=== PATIENT | male | born 1975 | race Caucasian/White ===

== ENCOUNTER 2019-10-18 23:11 | Emergency (ER) | payer OTHER ==
[~2019-10-18] VITALS: Ht 175.3 cm; Wt 95.3 kg
[2019-10-19] MEDS ORDERED: ASPIRIN 81 MG CHEW TAB PO ONE
[2019-10-19] MEDS ORDERED: ASPIRIN 81 MG CHEW TAB ONE (00:09)
[2019-10-19] MEDS ORDERED: CLONIDINE HCL 0.1 MG TAB ONE ×2 (00:09→00:59)
--- OUTSIDE RECORDS SUMMARY | 2019-10-19 00:21 | XMS REPORT ---
Author Author Jourdan Plummer Organization [employer] Address Unknown Phone Unavailable Care Team Providers Care Putter In Name Role Phone Uriel Plummer CP Unavailable Allergies, Adverse Reactions, Alerts Substance Reaction Event Type N.K.D.A. 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 Problem Sinusitis - Chronic J32.8 Active Problem Hypertrophy of tonsils J35.1 Activ e Problem Chronic rhinitis J31.0 Active Problem Allergic rhinitis J30.9 Active Problem Dysphagia R13.19 Active Assessment Postnasal drip R09.82 Active Assessment Sinusitis - Chronic J32.8 Active Assessment Chronic rhinitis J31.0 Active Assessment Allergic rhinitis J30.9 Active Medications Medication Code System Code Instructions Start Date End Date Status Dosage Lisinopril [facility] [address]-78 Active not def ined Nexium [facility] 00762492557 40 MG Orally Once a day Acti ve 1 capsule Pravastatin Sodium [facility] [address]-57 Active not defined Results No Known Results Summary Purpose [employer] Submission
--- OUTSIDE RECORDS SUMMARY | 2019-10-19 00:21 | XMS REPORT | Continuity of Care Document ---
Author Author [facility] t Organization [facility] Address [address] [place] [address] Phone Unavailable Care Team Providers Care Plywood Layup Line Core Layer Name Role Phone Mukund Bethea PCP Unavailable Doctor Unassigned, Name No Attphys Unavailable Vandana Bethea MD Attphys Problems Condition Name Condition Details Condition Category Status Onset Date Resolution Date Last Treatment Date Treating Clinician Comments Source Nasal airway obstruction Nasal airway obstruction Diagnosis [facility] Chronic tonsillitis Chronic tonsillitis Problem [facility] Hypertrophy of tonsil with adenoids Hypertrophy of tonsil with a denoids Problem [facility] Polyp of nasal cavity Polyp of nasal cavity Problem [facility] Polypoid sinus degeneration Polypoid sinus degeneration Problem [facility] Sinusitis - Chronic Sinusitis - Chronic Diagnosis [facility] Hypertrophy of tonsils Hypertrophy of tonsils Problem [facility] Chronic rhinitis Chronic rhinitis Diagnosis [facility] Allergic rhinitis Allergic rhinitis Diagnosis [facility] Dysphagia Dysphagia Problem [facility] Postnasal drip Postnasal drip Diagnosis [facility] Allergies, Adverse Reactions, Alerts This patient has no known allergies or adverse reactions. Social History Social Habit Start Date Stop Date Quantity Comments Source Sex Assigned At [facility] Smoking Status Start Date Stop Date Source Never smoker [facility] Medications Ordered Medication Name Filled Medication Name Start Date Stop Da te Current Medication? Ordering Clinician Indication Dosage Frequency Signature (SIG) Comments Components Source esomeprazole (NEXIUM) 20 MG capsule 2016-03-16 14:43:51 Yes 20mg QD Take 20 mg by mouth daily. [facility] Lisinopril Lisinopril Yes Uriel Plummer not define d [facility] Nexium Nexium Yes Uriel Elian 1 capsule [facility] Pravastatin Sodium Pravastatin Sodium Yes Uriel Elian not defined [facility] Procedures This patient has no known procedures. Encounters Start Date/Time End Date/Time Encounter Type Admission Type [facility] Care Department Encounter ID Source 2019-09-18 00:00:00 2019-09-18 00:00:00 Orders Only D o[place] Unassigned, [place] [facility] [id number] 2019-09-17 00:00:00 2019-09-17 00:00:00 Telephone Edna Bethea [facility] [id number] 2019-09-07 00:00:00 2019-09-07 00:00:00 Patient Secure Msg Edna Bethea [facility] [id number] 2017-05-06 11:10:00 2017-05-06 11:10:00 Outpatient [facility] P [id number] [facility] Results This patient has no known results.
--- OUTSIDE RECORDS SUMMARY | 2019-10-19 00:21 | XMS REPORT | Clinical Summary ---
Author Author [facility] Address Unknown Phone Unavailable Care Team Providers Care Digital Campaign Manager Name Role Phone Edna Bethea PCP Unavailable Allergies No Known Allergies Medications End Date Status Medication Sig Dispensed Refills Start Date Active esomeprazole (NEXIUM) 20 Take 20 mg by 0 MG capsule mouth daily. Active Problems Not on file Social History Date Tobacco Use Types Packs/Day Years Used Never Smoker Alcohol Use Drinks/Week oz/Week Comments Yes 3 Standard 1.5 drinks or equivalent Sex Assigned at Date Recorded Not on file Industry Job Start Date Occupation Not on file Not on file Not on file Travel End Travel History Travel Start No recent travel history available. Last Filed Vital Signs Not on file Plan of Treatment Not on file Results Not on fileafter 10/18/2018 Insurance Payer Benefit Subscriber ID Type Phone Address Plan / Group C[employer] - [facility] xxxxxxxxx CIGNA O [id number]
--- OUTSIDE RECORDS SUMMARY | 2019-10-19 00:21 | XMS REPORT | Summary of Care ---
Author Author [facility] Organization [facility] Address Unknown Phone Unavailable Care Team Providers Care Black Oxide Coating Equipment Tender Name Role Phone Edna Bethea MD PCP Encounter Details Care Team Description Date Type Department Doctor Unassigned, [place] [address] [place] [address] 10/16/2018 Orders Only [address] [address] Allergies No Known Allergiesdocumented as of this encounter (statuses as of 10/16/2018) Medications End Date Status Medication Sig Dispensed Refills Start Date Active testosterone 1.25 APPLY 4 1 Bottle 2 09/14/19 1 g/Actuation (1 %) gel SPRAYS 7 pumpIndications: EXTERNALLY TO Hypogonadism, male SPECIFIC AREA OF SKIN DAILY Active tadalafil (CIALIS) 5 mg TAKE 1/2 6 tablet 2 tabletIndications: TABLET BY 8 Erectile dysfunction due MOUTH EVERY to diseases classified 36 HOURS elsewhere Active pravastatin 40 mg Take 1 tablet 90 tablet 3 tabletIndications: Other by mouth at 8 hyperlipidemia bedtime. Active omeprazole 20 mg capsule Take 1 30 capsule 2 0 capsule by 8 mouth daily. Active lisinopril 10 mg Take 1 tablet 30 tablet 0 tabletIndications: by mouth 9 Essential hypertension daily. documented as of this encounter (statuses as of 10/16/2018) Active Problems Problem Noted Date Vitamin D deficiency 11/27/2017 Esophageal dysphagia 11/27/2017 Essential hypertension 09/14/2016 Other hyperlipidemia 12/20/2015 Erectile dysfunction 06/18/2014 Hypogonadism, male 06/06/2009 documented as of this encounter (statuses as of 10/16/2018) Resolved Problems Problem Noted Date Resolved Date Tonsillar enlargement 12/20/2015 09/14/2016 HLD (hyperlipidemia) 03/20/2013 12/20/2015 Overview: ICD10 Diagnosis Term Hematology Nurse Utility documented as of this encounter (statuses as of 10/16/2018) Immunizations Name Administration Dates Next Due Tdap 09/04/2012 documented as of this encounter Social History Date Tobacco Use Types Packs/Day Years Used Never Smoker Drinks/Week oz/Week Comments Alcohol Use 1-4 whiskey shots pe r week. Yes Sex Assigned at Date Recorded Not on file Industry Job Start Date Occupation Not on file Not on file Not on file Travel End Travel History Travel Start No recent travel history available. documented as of this encounter Last Filed Vital Signs Not on filedocumented in this encounter Plan of Treatment Care Team Description Date Type Specialty Edna Bethea MD [address] [facility] [id number] [place] [address] [phone] 10/16/2018 Office Visit Family Medicine Health Maintenance Due Date Last Done Comments INFLUENZA VACCINE 11/16/2018 DTaP,Tdap,and Td Vaccines 09/04/2022 09/04/2012 (2 - Td) PNEUMOCOCCAL 0-64 YEARS Aged Out No longer elig ible based COMBINED SERIES on patient's age to complete this topic documented as of this encounter Procedures Comments Procedure Name Priority Date/Time Associated Diag nosis NO SHOW OR MISSED Routine 10/16/2018 APPOINTMENT POLICY 8:05 AM CDT ACKNOWLEDGEMENT documented in this encounter Results Not on filedocumented in this encounter Insurance Type Payer Benefit Subscriber ID Effective Phone Address Plan / Dates Group HMO/PPO/POS CIGNA CIGNA II [id number] 2014-P resent documented as of this encounter Advance Directives Patient Vb Developer Explanation Type Date Recorded Advance Directives 05/20/2015 9:05 AM and Living Will Power of Granulator Tender 05/20/2015 9:05 AM
--- OUTSIDE RECORDS SUMMARY | 2019-10-19 00:22 | XMS REPORT | Summary of Care ---
Author Author [facility] - Health Organization [facility] - [facility] Address Unknown Phone Unavailable Care Team Providers Care Door Puller Name Role Phone Edna Bethea MD PCP Reason for Visit * Reason Comments Authorization Encounter Details Care Team Description Date Type Department Edna Bethea MD [address] [facility] [id number] [place], [place] [address] Authorization 10/17/2018 Telephone [place] [id number] [facility] [address] [place] [address] Allergies No Known Allergiesdocumented as of this encounter (statuses as of 10/29/2018) Medications End Date Status Medication Sig Dispensed Refills Start Date Active tadalafil (CIALIS) 5 mg TAKE 1/2 6 tablet 2 tabletIndications: TABLET BY 8 Erectile dysfunction due MOUTH EVERY to diseases classified 36 HOURS elsewhere Active testosterone 1.25 APPLY 4 1 Bottle 2 10/17/19 1 g/Actuation (1 %) gel SPRAYS 9 pumpIndications: EXTERNALLY TO Hypogonadism, male SPECIFIC AREA OF SKIN DAILY Active lisinopril 10 mg Take 1 tablet 90 tablet 3 01 tabletIndications: by mouth 9 Essential hypertension daily. Active pravastatin 40 mg Take 1 tablet 90 tablet 3 tabletIndications: Other by mouth at 9 hyperlipidemia bedtime. Active omeprazole 20 mg Take 1 30 capsule 2 capsuleIndications: capsule by 9 Esophageal dysphagia mouth daily. documented as of this encounter (statuses as of 10/29/2018) Active Problems Problem Noted Date Elevated LFTs 10/19/2018 Vitamin D deficiency 11/27/2017 Esophageal dysphagia 11/27/2017 Essential hypertension 09/14/2016 Other hyperlipidemia 12/20/2015 Erectile dysfunction 06/18/2014 Hypogonadism, male 06/06/2009 documented as of this encounter (statuses as of 10/29/2018) Resolved Problems Problem Noted Date Resolved Date Tonsillar enlargement 12/20/2015 09/14/2016 HLD (hyperlipidemia) 03/20/2013 12/20/2015 Overview: ICD10 Diagnosis Term Executive Assistant Utility documented as of this encounter (statuses as of 10/29/2018) Immunizations Name Administration Dates Next Due Tdap 09/04/2012 documented as of this encounter Social History Date Tobacco Use Types Packs/Day Years Used Never Smoker Smokeless Tobacco: Never Used Drinks/Week oz/Week Comments Alcohol Use 1-4 whiskey [...] Date Type Specialty Edna Bethea MD [address] [facility] [id number] [place] [address] [phone] 12/18/2018 Office Visit Family Medicine Health Maintenance Due Date Last Done Comments INFLUENZA VACCINE 11/16/2018 DTaP,Tdap,and Td Vaccines 09/04/2022 09/04/2012 (2 - Td) PNEUMOCOCCAL 0-64 YEARS Aged Out No longer elig ible based COMBINED SERIES on patient's age to complete this topic documented as of this encounter Results Not on filedocumented in this encounter Insurance Type Payer Benefit Subscriber ID Effective Phone Address Plan / Dates Group HMO/PPO/POS CIGNA CIGNA II [id number] 2014-P resent documented as of this encounter Advance Directives Patient Stack Supervisor Explanation Type Date Recorded Advance Directives 05/20/2015 9:05 AM and Living Will Power of Sonographer 05/20/2015 9:05 AM
--- OUTSIDE RECORDS SUMMARY | 2019-10-19 00:22 | XMS REPORT | Summary of Care ---
Author Author [facility] - Health Organization [facility] - Health Address Unknown Phone Unavailable Care Team Providers Care Mid Wife Name Role Phone Edna Bethea MD PCP Encounter Details Care Team Description Date Type Department Edna Bethea MD [id number] [place] [address] 09/07/2019 Patient Secure [address] [place] [address] Allergies No Known Allergiesdocumented as of this encounter (statuses as of 10/10/2019) Medications End Date Status Medication Sig Dispensed [...] as of this encounter (statuses as of 10/10/2019) Active Problems Problem Noted Date Elevated LFTs 10/19/2018 Vitamin D deficiency 11/27/2017 Esophageal dysphagia 11/27/2017 Essential hypertension 09/14/2016 Other hyperlipidemia 12/20/2015 Erectile dysfunction 06/18/2014 Hypogonadism, male 06/06/2009 documented as of this encounter (statuses as of 10/10/2019) Resolved Problems Problem Noted Date Resolved Date Tonsillar enlargement 12/20/2015 09/14/2016 HLD (hyperlipidemia) 03/20/2013 12/20/2015 Overview: ICD10 Diagnosis Term Liquor Tester Utility documented as of this encounter (statuses as of 10/10/2019) Immunizations Name Administration Dates Next Due TDAP 09/04/2012 documented as of this encounter Social [...] filedocumented in this encounter Plan of Treatment Health Maintenance Due Date Last Done Comments Depression Screening 1989 INFLUENZA VACCINE (#1) 2019 DTaP,Tdap,and Td Vaccines 09/04/2022 09/04/2012 (2 - Td) PNEUMOCOCCAL 0-64 YEARS Aged Out No longer elig ible based COMBINED SERIES on patient's age to complete this topic documented as of this encounter Results Not on filedocumented in this encounter Insurance Type Payer Benefit Subscriber ID Effective Phone Address Plan / Dates Group HMO/PPO/POS CIGNA CIGNA II [id number] 2014-P resent documented as of this encounter Advance Directives Patient Traffic Engineering Director Explanation Type Date Recorded Advance Directives 05/20/2015 9:05 AM and Living Will Power of Freelance Data Entry 05/20/2015 9:05 AM
--- OUTSIDE RECORDS SUMMARY | 2019-10-19 00:22 | XMS REPORT | Summary of Care ---
Author Author [facility] - Health Organization [facility] - Health Address Unknown Phone Unavailable Care Team Providers Care Senior Game Designer Name Role Phone Edna Bethea MD PCP Reason for Visit * Reason Comments Results Encounter Details Care Team Description Date Type Department Edna Bethea MD [address] [facility] [id number] [place] [address] Results 10/31/2018 Case Management [place] [id number] [facility] [address] [place] [address] Allergies No Known Allergiesdocumented as of this encounter (statuses as of 10/31/2018) Medications End Date Status Medication Sig Dispensed Refills Start Date Active tadalafil (CIALIS) 5 mg TAKE 1/ 6 tablet 2 tabletIndications: TABLET BY 8 [...] as of this encounter (statuses as of 10/31/2018) Active Problems Problem Noted Date Elevated LFTs 10/19/2018 Vitamin D deficiency 11/27/2017 Esophageal dysphagia 11/27/2017 Essential hypertension 09/14/2016 Other hyperlipidemia 12/20/2015 Erectile dysfunction 06/18/2014 Hypogonadism, male 06/06/2009 documented as of this encounter (statuses as of 10/31/2018) Resolved Problems Problem Noted Date Resolved Date Tonsillar enlargement 12/20/2015 09/14/2016 HLD (hyperlipidemia) 03/20/2013 12/20/2015 Overview: ICD10 Diagnosis Term Numerical Control Machine Tool Operator Utility documented as of this encounter (statuses as of 10/31/2018) Immunizations Name Administration Dates Next Due Tdap [...] Signs Not on filedocumented in this encounter Progress Notes * Edna Bethea MD - 10/31/2018 4:50 PM CDT Insurance has denied paying for testosterone therapy as no results of recent low testosterone levels. Testosterone levels ordered. To be done weekly drawn between 8-10am. My chart message sent to patient. documented in this encounter Plan of Treatment Care Team Description Date Type Specialty Edna Bethea MD [id number] [place] [address] [phone] 12/18/2018 Office Visit Family Medicine Order Schedule Name Type Priority Associated Diag noses weekly for 2 Occurrences starting 2018 until 10/30/2019 TESTOSTERONE, FREE AND LAB Routine Hypogon adism, male TOTAL Health Maintenance Due Date Last Done Comments INFLUENZA VACCINE (#1) 2018 DTaP,Tdap,and Td Vaccines 09/04/2022 09/04/2012 (2 - Td) PNEUMOCOCCAL 0-64 YEARS Aged Out No longer elig ible based COMBINED SERIES on patient's age to complete this topic documented as of this encounter Results Not on filedocumented in this encounter Visit Diagnoses Diagnosis Hypogonadism, male - Primary Other testicular hypofunction documented in this encounter Insurance Type Payer Benefit Subscriber ID Effective Phone Address Plan / Dates Group HMO/PPO/POS [employer]AGE [place] II [id number] 2014-P resent documented as of this encounter Advance Directives Patient Rolling Mill Operator Explanation Type Date Recorded Advance Directives 05/20/2015 9:05 AM and Living Will Power of Line Painting Machine Operator 05/20/2015 9:05 AM
--- OUTSIDE RECORDS SUMMARY | 2019-10-19 00:22 | XMS REPORT | Summary of Care ---
Author Author [facility] - Health Organization [facility] - Health Address Unknown Phone Unavailable Care Team Providers Care People Manager Name Role Phone Edna Bethea MD PCP Reason for Visit * Reason Comments Follow-up Hypertension Refill Request Encounter Details Care Team Description Date Type Department Edna Bethea MD 301 [facility] [id number] [place], [place] [address] Hypogonadism, male (Primary Dx); Vitamin D deficiency; Essential hypertension; Other hyperlipidemia; Esophageal dysphagia; Adjustment disorder with anxious mood 10/16/2018 Office Visit [address] [place] [phone] Allergies No Known Allergiesdocumented as of [...] Take 1 tablet 90 tablet 3 tabletIndications: by mouth 9 Essential hypertension daily. Active pravastatin 40 mg Take 1 tablet 90 tablet 3 tabletIndications: Other by mouth at 9 hyperlipidemia bedtime. Active omeprazole 20 mg Take 1 30 capsule 2 capsuleIndications: capsule by 9 Esophageal dysphagia mouth daily. 10/16/2018 Discontinued testosterone 1.25 APPLY 4 1 Bottle 2 09/14/19 1 g/Actuation (1 %) gel SPRAYS 7 pumpIndications: EXTERNALLY TO Hypogonadism, male SPECIFIC AREA OF SKIN DAILY 10/16/2018 Discontinued pravastatin 40 mg Take 1 tablet 90 tablet 3 tabletIndications: Other by mouth at 8 hyperlipidemia bedtime. 10/16/2018 Discontinued omeprazole 20 mg capsule Take 1 30 capsule 2 0 capsule by 8 mouth daily. 10/16/2018 Discontinued lisinopril 10 mg Take 1 tablet 30 [...] (hyperlipidemia) 03/20/2013 12/20/2015 Overview: ICD10 Diagnosis Term Diabetes Education Coordinator Utility documented as of this encounter (statuses [...] of this encounter Last Filed Vital Signs Reading Time Taken Comments Vital Sign 126/80 10/16/2018 8:18 AM CDT Blood Pressure 82 10/16/2018 8:12 AM CDT Pulse 36.9 C (98.4 F) 10/16/2018 8:12 AM CDT Temperature 20 10/16/2018 8:12 AM CDT Respiratory Rate 98% 10/16/2018 8:12 AM CDT Oxygen Saturation - - Inhaled Oxygen Concentration 98.7 kg (217 lb 11.2 oz) 10/16/2018 8:12 AM CDT Weight 175.3 cm (5' 9") 10/16/2018 8:12 AM CDT Height 32.15 10/16/2018 8:12 AM CDT Body Mass Index documented in this encounter Progress Notes * Edna Bethea MD - 10/16/2018 8:20 AM CDT Jourdan Elias is a 43 year old male here for chief complaint of Follow-up; Hypert ension; and Refill Request HPI: Jourdan Elias is a 43 year old male here for Follow-up; Hypertension; and Re fill Request Not sleeping well stress at work, 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 Wit h no more employees. Problems fallign asleep. For stress reduction - friends- p ool bbq basketball. [place]. Projects around house. No scheduled exercise. - run s walk 20 mins once a week. Uneasy in chest if leaves work with unfinshed dutie s. Enjoys work and pay from it. last year- Dog cancer 2 d before aunt. M Aunt cancer- in spine M First cousin- leukemia Medications reviewed- forgets pravastatin Insurance doesn't cover patches, doesn't like putting on cream. - takes long german e to dry. not checking bp at home. Rarely has dysphagia takes omeprazole when does occurs 1-2 x a month. Has not taken testoserone in 1 year. Taklng vitamin D 2,000IU a day. HISTORY Patient Active Problem List Diagnosis Hypogonadism, male Erectile dysfunction Other hyperlipidemia Essential hypertension Vitamin D deficiency Esophageal dysphagia Updated: family history and social history REVIEW OF SYSTEMS Constitutional: denies fatigue, denies fever , denies weight gain and denies david ght loss. Cardiovascular: denies chest pain and denies palpitations. Respiratory: denies cough and denies shortness of breath. Gastrointestinal: denies abdominal pain, denies constipation, denies diarrhea, d enies nausea and denies vomiting. Musculoskeletal: denies joint pain, denies muscle cramps and denies weakness. Lymph: denies swelling. PHYSICAL EXAM BP 126/80 | Pulse 82 | Temp 36.9 C (98.4 F) (Oral) | Resp 20 | Ht 5' 9" (1.753 m) | Wt 217 lb 11.2 oz (98.7 kg) | SpO2 98% | BMI 32.15 kg/m Body mass index is 32.15 kg/m. Pain Score: 0-No pain General: Patient in no acute distress. Vitals noted. Lungs: clear to auscultation bilaterally, no crackle or wheeze, good air moveme nt. CV: normal S1 S2, no murmurs. Extremities: no edema ASSESSMENT Hypogonadism, male (primary encounter diagnosis) Comment: untreated in about 1 year. Plan: TESTOSTERONE, testosterone 1.25 g/Actuation (1 %) gel pump Discussed different techniques for using time while gel drying, he will tr y to change his morning routine. Recheck level in 2 months Vitamin D deficiency Plan: VITAMIN D, 25-OH adjsut pending results Essential hypertension Comment: controlled Plan: CBC WITH DIFF, COMP. METABOLIC PANEL (20151), LIPID PANEL (72988)(TOTAL CHOLESTEROL, TRIGLYCERIDES, HDL), lisinopril 10 mg tablet, CBC WITH DIFFERENTIAL Other hyperlipidemia Comment: discussed ways to remember tyo take pravistatin Plan: COMP. METABOLIC PANEL (82710), LIPID PANEL (61727)(TOTAL CHOLESTEROL, TRIGLYCERIDES, HDL), pravastatin 40 mg tablet Had total body usg done at [facility] and told fatty liver and gallstones, - a symptomatic Low fat diet advised. Esophageal dysphagia Plan: omeprazole 20 mg capsule Uses intermittently Adjustment disorder with anxious mood May be due to work stress from success of business. Still hable to enjoy activit ies outside of work May improve with testosterone treatment. Return to clinic in 2 months . Patient voices understanding and agreement with kandy maravilla. documented in this encounter Plan of Treatment Care Team Description Date Type Specialty Edna Bethea MD [id number] [place] [address] [phone] 12/18/2018 Office Visit Family Medicine Order Schedule Name Type Priority Associated Diag noses Ordered: 10/16/2018 CBC WITH DIFF LAB Routine Essential hyper tension Ordered: 10/16/2018 COMP. METABOLIC PANEL LAB Routine Essentia l hypertension (68640) Other hyperlipidemia Ordered: 10/16/2018 LIPID PANEL (15142)(TOTAL LAB Routine Esse ntial hypertension CHOLESTEROL, Other hyperlipidemia TRIGLYCERIDES, HDL) Ordered: 10/16/2018 VITAMIN D, 25-OH LAB Routine Vitamin D def iciency Ordered: 10/16/2018 TESTOSTERONE LAB Routine Hypogonadism, m benjamin Ordered: 10/16/2018 CBC WITH DIFFERENTIAL LAB Routine Essentia l hypertension Health Maintenance Due Date Last Done Comments INFLUENZA VACCINE 11/16/2018 DTaP,Tdap,and Td Vaccines 09/04/2022 09/04/2012 (2 - Td) PNEUMOCOCCAL 0-64 YEARS Aged Out No longer elig ible based COMBINED SERIES on patient's age to complete this topic documented as of this encounter Results Not on filedocumented in this encounter Visit Diagnoses Diagnosis Hypogonadism, male - Primary Other testicular hypofunction Vitamin D deficiency Unspecified vitamin D deficiency Essential hypertension Unspecified essential hypertension Other hyperlipidemia Esophageal dysphagia Dysphagia, pharyngoesophageal phase Adjustment disorder with anxious mood Adjustment disorder with anxiety documented in this encounter Insurance Type Payer Benefit Subscriber ID Effective Phone Address Plan / Dates Group HMO/PPO/POS CIGNA CIGNA II [id number] 2014-P resent documented as of this encounter Advance Directives Patient Brass Pourer Explanation Type Date Recorded Advance Directives 05/20/2015 9:05 AM and Living Will Power of Poultry Farmer Egg 05/20/2015 9:05 AM
--- OUTSIDE RECORDS SUMMARY | 2019-10-19 00:22 | XMS REPORT | Summary of Care ---
Author Author [facility] - Health Organization [facility] - Health Address Unknown Phone Unavailable Care Team Providers Care Marketing Developer Name Role Phone Edna Bethea MD PCP Encounter Details Care Team Description Date Type Department Doctor Unassigned, [place] [address] [place] [address] 09/18/2019 Orders Only [facility] [address] [place] [address] Allergies No Known Allergiesdocumented as of this encounter (statuses as of 09/29/2019) Medications End Date Status Medication Sig Dispensed [...] capsule by 9 Esophageal dysphagia mouth daily. Active testosterone 1.25 APPLY 4 1 Bottle 2 09/15/19 2 g/Actuation (1 %) gel SPRAYS 0 pumpIndications: EXTERNALLY TO Hypogonadism, male SPECIFIC AREA OF SKIN DAILY Active lisinopril 10 mg Take 1 tablet 60 tablet 5 02 tabletIndications: by mouth 2 0 Essential hypertension (two) times daily. documented as of this encounter (statuses as of 09/29/2019) Active Problems Problem Noted Date Elevated LFTs 10/19/2018 Vitamin D deficiency 11/27/2017 Esophageal dysphagia 11/27/2017 Essential hypertension 09/14/2016 Other hyperlipidemia 12/20/2015 Erectile dysfunction 06/18/2014 Hypogonadism, male 06/06/2009 documented as of this encounter (statuses as of 09/29/2019) Resolved Problems Problem Noted Date Resolved Date Tonsillar enlargement 12/20/2015 09/14/2016 HLD (hyperlipidemia) 03/20/2013 12/20/2015 Overview: ICD10 Diagnosis Term Automatic Bow Maker Machine Tender Utility documented as of this encounter (statuses as of 09/29/2019) Immunizations Name Administration Dates Next Due TDAP [...] Procedure Name Priority Date/Time Associated Diag nosis INSURANCE CORRESPONDENCE Routine 09/18/2019 12:01 AM CDT documented in this encounter Results Not on filedocumented in this encounter Insurance Type Payer Benefit Subscriber ID Effective Phone Address Plan / Dates Group HMO/PPO/POS CIGNA GAGE II [id number] 2014-P resent documented as of this encounter Advance Directives Patient Visual Merchandise Manager Explanation Type Date Recorded Advance Directives 05/20/2015 9:05 AM and Living Will Power of Urban Forester 05/20/2015 9:05 AM
--- OUTSIDE RECORDS SUMMARY | 2019-10-19 00:22 | XMS REPORT | Summary of Care ---
Author Author [facility] - Health Organization [facility] - Health Address Unknown Phone Unavailable Care Team Providers Care Heat Treat Furnace Operator Name Role Phone Edna Bethea MD PCP Reason for Visit * Reason Comments LAB Encounter Details Care Team Description Date Type Department Edna Bethea MD [address] [place] [address] Only, [facility] Hypogonadism, male 04/03/2019 Nurse Visit [facility] Medicine- [place] [address] [facility] [address] [place] [address] Allergies No Known Allergiesdocumented as of this encounter (statuses as of 04/03/2019) Medications End Date Status Medication Sig Dispensed [...] as of this encounter (statuses as of 04/03/2019) Active Problems Problem Noted Date Elevated LFTs 10/19/2018 Vitamin D deficiency 11/27/2017 Esophageal dysphagia 11/27/2017 Essential hypertension 09/14/2016 Other hyperlipidemia 12/20/2015 Erectile dysfunction 06/18/2014 Hypogonadism, male 06/06/2009 documented as of this encounter (statuses as of 04/03/2019) Resolved Problems Problem Noted Date Resolved Date Tonsillar enlargement 12/20/2015 09/14/2016 HLD (hyperlipidemia) 03/20/2013 12/20/2015 Overview: ICD10 Diagnosis Term Workday Director Utility documented as of this encounter (statuses as of 04/03/2019) Immunizations Name Administration Dates Next Due Tdap [...] filedocumented in this encounter Progress Notes * Rimma Dean MA - 04/03/2019 10:00 AM LAP LAYER 43 year old male has been identified by and name. The patient has signed th e informed consent to have blood drawn Previous/Current Encounter Diagnosis: e29.1 Venipuncture performed by clean technique on the left anticubitus. Slight press ure and a band aid were applied to the venipuncture site. The patient tolerated the procedure well. The collected blood sample(s) were properly labeled [facility] LAYER documented in this encounter Plan of Treatment Date/Time Name Type Priority Associated Diag noses 04/03/2019 9:51 AM LAP LAYER TESTOSTERONE LAB Routine Hypogonadism, m benjamin Health Maintenance Due Date Last Done Comments INFLUENZA VACCINE (#1) 2018 DTaP,Tdap,and Td Vaccines 09/04/2022 09/04/2012 (2 - Td) PNEUMOCOCCAL 0-64 YEARS Aged Out No longer elig ible based COMBINED SERIES on patient's age to complete this topic documented as of this encounter Results Not on filedocumented in this encounter Visit Diagnoses Diagnosis Hypogonadism, male Other testicular hypofunction documented in this encounter Insurance Type Payer Benefit Subscriber ID Effective Phone Address Plan / Dates Group HMO/PPO/POS CIGNA CIGNA II [id number] 2014-P resent documented as of this encounter Advance Directives Patient Cell Reliner Explanation Type Date Recorded Advance Directives 05/20/2015 9:05 AM and Living Will Power of Cert Pharmacy Tech 05/20/2015 9:05 AM
--- OUTSIDE RECORDS SUMMARY | 2019-10-19 00:22 | XMS REPORT | Summary of Care ---
Author Author [facility] - Health Organization [facility] - Health Address Unknown Phone Unavailable Care Team Providers Care Junior Php Developer Name Role Phone Edna Bethea MD PCP Reason for Visit * Reason Comments Follow-up Hypertension Refill Request Encounter Details Care Team Description Date Type Department Edna Bethea MD 301 [facility] [id number] [place], [place] [address] Hypogonadism, male (Primary Dx); Vitamin D deficiency; Essential hypertension; Other hyperlipidemia; Esophageal dysphagia; Adjustment disorder with anxious mood 10/16/2018 Office Visit [address] [place] [phone] Allergies No Known Allergiesdocumented as of [...] (hyperlipidemia) 03/20/2013 12/20/2015 Overview: ICD10 Diagnosis Term Shelter Director Utility documented as of this encounter [...] Plan: CBC WITH DIFF, COMP. METABOLIC PANEL (21543), LIPID PANEL (68975)(TOTAL CHOLESTEROL, TRIGLYCERIDES, HDL), lisinopril 10 mg tablet, CBC WITH DIFFERENTIAL Other hyperlipidemia Comment: discussed ways to remember tyo take pravistatin Plan: COMP. METABOLIC PANEL (28880), LIPID PANEL (53613)(TOTAL CHOLESTEROL, TRIGLYCERIDES, HDL), pravastatin 40 mg tablet [...] Specialty Edna Bethea MD [id number] [place] [address] [phone] 12/18/2018 Office Visit Family Medicine Order Schedule Name Type Priority Associated Diag noses Ordered: 10/16/2018 CBC WITH DIFF LAB Routine Essential hyper tension Ordered: 10/16/2018 COMP. METABOLIC PANEL LAB Routine Essentia l hypertension (10135) Other hyperlipidemia Ordered: 10/16/2018 LIPID PANEL (79616)(TOTAL LAB Routine Esse ntial hypertension CHOLESTEROL, Other [...] / Dates Group HMO/PPO/POS CIGNA CIGNA II [id number] 2014-P resent documented as of this encounter Advance Directives Patient Parts Designer Explanation Type Date Recorded Advance Directives 05/20/2015 9:05 AM and Living Will Power of Mechatronics Technologist 05/20/2015 9:05 AM
--- OUTSIDE RECORDS SUMMARY | 2019-10-19 00:22 | XMS REPORT | Summary of Care ---
Author Author [facility] - Health Organization [facility] - Health Address Unknown Phone Unavailable Care Team Providers Care Quill Skinner Name Role Phone Edna Bethea MD PCP Reason for Visit * Reason Comments Rx Concern/Question Encounter Details Care Team Description Date Type Department Edna Bethea MD 301 [facility] [address] [place], [place] [address] Rx Concern/Question 10/16/2018 Telephone [facility] 2401 [facility] [address] [place] [phone] Allergies No Known Allergiesdocumented as of this encounter (statuses as of 10/17/2018) Medications End Date Status Medication Sig Dispensed [...] as of this encounter (statuses as of 10/17/2018) Active Problems Problem Noted Date Vitamin D deficiency 11/27/2017 Esophageal dysphagia 11/27/2017 Essential hypertension 09/14/2016 Other hyperlipidemia 12/20/2015 Erectile dysfunction 06/18/2014 Hypogonadism, male 06/06/2009 documented as of this encounter (statuses as of 10/17/2018) Resolved Problems Problem Noted Date Resolved Date Tonsillar enlargement 12/20/2015 09/14/2016 HLD (hyperlipidemia) 03/20/2013 12/20/2015 Overview: ICD10 Diagnosis Term Clerk Of Court Utility documented as of this encounter (statuses as of 10/17/2018) Immunizations Name Administration Dates Next Due Tdap [...] Type Specialty Edna Bethea MD [address] [facility] [id number] [place] [address] [phone] 12/18/2018 Office Visit Family Medicine Health Maintenance [...] / Dates Group HMO/PPO/POS CIGNA CIGNA II [id number] 2014-P resent documented as of this encounter Advance Directives Patient Equipment Hire Manager Explanation Type Date Recorded Advance Directives 05/20/2015 9:05 AM and Living Will Power of Customer Operations Associate 05/20/2015 9:05 AM
--- OUTSIDE RECORDS SUMMARY | 2019-10-19 00:22 | XMS REPORT | Summary of Care ---
Author Author [facility] - Health Organization [facility] - Health Address Unknown Phone Unavailable Care Team Providers Care Mail Order Sorter Name Role Phone Edna Bethea MD PCP Reason for Visit * Reason Comments Authorization Encounter Details Care Team Description Date Type Department Edna Bethea MD 301 [facility] [id number] [place], [place] [id number] Authorization 10/17/2018 Telephone [place] [id number] [facility] [address] [place] [phone] Allergies No Known Allergiesdocumented as of this encounter (statuses as of 10/27/2018) Medications End Date Status Medication Sig Dispensed [...] as of this encounter (statuses as of 10/27/2018) Active Problems Problem Noted Date Elevated LFTs 10/19/2018 Vitamin D deficiency 11/27/2017 Esophageal dysphagia 11/27/2017 Essential hypertension 09/14/2016 Other hyperlipidemia 12/20/2015 Erectile dysfunction 06/18/2014 Hypogonadism, male 06/06/2009 documented as of this encounter (statuses as of 10/27/2018) Resolved Problems Problem Noted Date Resolved Date Tonsillar enlargement 12/20/2015 09/14/2016 HLD (hyperlipidemia) 03/20/2013 12/20/2015 Overview: ICD10 Diagnosis Term Shallot Cleaner Utility documented as of this encounter (statuses as of 10/27/2018) Immunizations Name Administration Dates Next Due Tdap [...] Type Specialty Edna Bethea MD [address] [facility] [address] [place] [address] [phone] 12/18/2018 Office Visit Family Medicine Health Maintenance [...] / Dates Group HMO/PPO/POS CIGNA CIGNA II [id number] 2014-P resent documented as of this encounter Advance Directives Patient Service Mechanic Explanation Type Date Recorded Advance Directives 05/20/2015 9:05 AM and Living Will Power of Radio News Writer 05/20/2015 9:05 AM
--- OUTSIDE RECORDS SUMMARY | 2019-10-19 00:22 | XMS REPORT | Summary of Care ---
Author Author [facility] - Health Organization [facility] - Health Address Unknown Phone Unavailable Care Team Providers Care Appliance Mechanic Name Role Phone Edna Bethea MD PCP Reason for Visit * Reason Comments Follow-up Hypertension Refill Request Encounter Details Care Team Description Date Type Department Edna Bethea MD 301 [facility] [address] [place], [place] [address] Hypogonadism, male (Primary Dx); Vitamin D deficiency; Essential hypertension; Other hyperlipidemia; Esophageal dysphagia; Adjustment disorder with anxious mood 10/16/2018 Office Visit [address] [place] [phone] Allergies No Known Allergiesdocumented as of [...] (hyperlipidemia) 03/20/2013 12/20/2015 Overview: ICD10 Diagnosis Term [employer] Utility documented as of this encounter (statuses [...] Plan: CBC WITH DIFF, COMP. METABOLIC PANEL (96404), LIPID PANEL (33440)(TOTAL CHOLESTEROL, TRIGLYCERIDES, HDL), lisinopril 10 mg tablet, CBC WITH DIFFERENTIAL Other hyperlipidemia Comment: discussed ways to remember tyo take pravistatin Plan: COMP. METABOLIC PANEL (52335), LIPID PANEL (16921)(TOTAL CHOLESTEROL, TRIGLYCERIDES, HDL), pravastatin 40 mg tablet [...] Type Specialty Edna Bethea MD [address] [place] [address] [phone] 12/18/2018 Office Visit Family Medicine Date/Time Name Type Priority Associated Diag noses 10/16/2018 9:19 AM CDT CBC WITH DIFF LAB Routine Essential hyper tension 10/16/2018 9:19 AM CDT COMP. METABOLIC PANEL LAB Routine Essentia l hypertension (32137) Other hyperlipidemia 10/16/2018 9:19 AM CDT LIPID PANEL (54695)(TOTAL LAB Routine Esse ntial hypertension CHOLESTEROL, Other hyperlipidemia TRIGLYCERIDES, HDL) 10/16/2018 9:19 AM CDT VITAMIN D, 25-OH LAB Routine Vitamin D def iciency 10/16/2018 9:19 AM CDT TESTOSTERONE LAB Routine Hypogonadism, m benjamin 10/16/2018 9:19 AM CDT CBC WITH DIFFERENTIAL LAB Routine Essentia l [...] / Dates Group HMO/PPO/POS CIGNA CIGNA II [id number] 2014-P resent documented as of this encounter Advance Directives Patient Director Translation Explanation Type Date Recorded Advance Directives 05/20/2015 9:05 AM and Living Will Power of Snow Ranger 05/20/2015 9:05 AM
--- OUTSIDE RECORDS SUMMARY | 2019-10-19 00:22 | XMS REPORT | Summary of Care ---
Author Author [facility] - Health Organization [facility] - Health Address Unknown Phone Unavailable Care Team Providers Care Senior Oracle Adf Developer Name Role Phone Edna Bethea MD PCP Reason for Visit * Reason Comments Medication Problem PA for testosterone 1.25 g/ Actuation (1 %) gel pump Encounter Details Care Team Description Date Type Department Edna Bethea MD 301 [facility] [address] [place] [address] Medication Problem (PA for testosterone 1.25 g/Actuation (1 %) gel pump ) 09/17/2019 Telephone [facility]- [address] [place] [phone] Allergies No Known Allergiesdocumented as of this encounter (statuses as of 09/18/2019) Medications End Date Status Medication Sig Dispensed [...] as of this encounter (statuses as of 09/18/2019) Active Problems Problem Noted Date Elevated LFTs 10/19/2018 Vitamin D deficiency 11/27/2017 Esophageal dysphagia 11/27/2017 Essential hypertension 09/14/2016 Other hyperlipidemia 12/20/2015 Erectile dysfunction 06/18/2014 Hypogonadism, male 06/06/2009 documented as of this encounter (statuses as of 09/18/2019) Resolved Problems Problem Noted Date Resolved Date Tonsillar enlargement 12/20/2015 09/14/2016 HLD (hyperlipidemia) 03/20/2013 12/20/2015 Overview: ICD10 Diagnosis Term Interventional Tech Utility documented as of this encounter (statuses as of 09/18/2019) Immunizations Name Administration Dates Next Due TDAP [...] Phone Address Plan / Dates Group HMO/PPO/POS CIGYASSINE ALMONTE II [id number] 2014-P resent documented as of this encounter Advance Directives Patient Sewing Machine Operator Explanation Type Date Recorded Advance Directives 05/20/2015 9:05 AM and Living Will Power of Merchandiser Retail Representative 05/20/2015 9:05 AM
--- OUTSIDE RECORDS SUMMARY | 2019-10-19 00:22 | XMS REPORT | Summary of Care ---
Author Author [facility] - Health Organization [facility] - Health Address Unknown Phone Unavailable Care Team Providers Care Hospitality Coordinator Name Role Phone Edna Bethea MD PCP Reason for Visit * Reason Comments Authorization Encounter Details Care Team Description Date Type Department Edna Bethea MD 301 [facility] [id number] [place], [place] [id number] Authorization 10/17/2018 Telephone [place] [id number] [facility] [address] [place] [phone] Allergies No Known Allergiesdocumented as of [...] (hyperlipidemia) 03/20/2013 12/20/2015 Overview: ICD10 Diagnosis Term Assistant Manager Bilingual Utility documented as of this encounter (statuses [...] Type Specialty Edna Bethea MD [address] [facility] [id number] [place] [address] [phone] 12/18/2018 Office Visit Family Medicine Health Maintenance [...] / Dates Group HMO/PPO/POS CIGNA CIGNA II [id number] 2014-P resent documented as of this encounter Advance Directives Patient Carpentry Specialist Explanation Type Date Recorded Advance Directives 05/20/2015 9:05 AM and Living Will Power of Stock Driver 05/20/2015 9:05 AM
--- OUTSIDE RECORDS SUMMARY | 2019-10-19 00:22 | XMS REPORT | Summary of Care ---
Author Author [facility] - Health Organization [facility] - Health Address Unknown Phone Unavailable Care Team Providers Care Agency Sales Development Associate Name Role Phone Edna Bethea MD PCP Encounter Details Care Team Description Date Type Department Edna Bethea MD [id number] [place] [address] Essential hypertension 09/14/2019 Patient Secure [facility] Care [address], [address] [place] [address] Allergies No Known Allergiesdocumented as of this encounter (statuses as of 09/14/2019) Medications End Date Status Medication Sig Dispensed Refills Start Date Active tadalafil (CIALIS) 5 mg TAKE 1/2 6 tablet 2 tabletIndications: TABLET BY 8 Erectile dysfunction due MOUTH EVERY to diseases classified 36 HOURS elsewhere Active testosterone 1.25 APPLY 4 1 Bottle 2 10/17/19 1 g/Actuation (1 %) gel SPRAYS 9 pumpIndications: EXTERNALLY TO Hypogonadism, male SPECIFIC AREA OF SKIN DAILY Active pravastatin 40 mg Take 1 tablet 90 tablet 3 tabletIndications: Other by mouth at 9 hyperlipidemia bedtime. Active omeprazole 20 mg Take 1 30 capsule 2 capsuleIndications: capsule by 9 Esophageal dysphagia mouth daily. Active lisinopril 10 mg Take 1 tablet 90 tablet 3 02 tabletIndications: by mouth 0 Essential hypertension daily. 09/14/2019 Discontinued (Reorder) lisinopril 10 mg Take 1 tablet 90 tablet 3 01 tabletIndications: by mouth 9 Essential hypertension daily. documented as of this encounter (statuses as of 09/14/2019) Active Problems Problem Noted Date Elevated LFTs 10/19/2018 Vitamin D deficiency 11/27/2017 Esophageal dysphagia 11/27/2017 Essential hypertension 09/14/2016 Other hyperlipidemia 12/20/2015 Erectile dysfunction 06/18/2014 Hypogonadism, male 06/06/2009 documented as of this encounter (statuses as of 09/14/2019) Resolved Problems Problem Noted Date Resolved Date Tonsillar enlargement 12/20/2015 09/14/2016 HLD (hyperlipidemia) 03/20/2013 12/20/2015 Overview: ICD10 Diagnosis Term Copying Machine Mechanic Utility documented as of this encounter (statuses as of 09/14/2019) Immunizations Name Administration Dates Next Due TDAP [...] Date Type Specialty Edna Bethea MD [address] [facility] [place] [id number] [place] [address] [phone] 09/15/2019 Office Visit Family Medicine Health Maintenance Due Date Last Done Comments Depression Screening 1989 INFLUENZA VACCINE (Season 11/17/2019 Ended) DTaP,Tdap,and Td Vaccines 09/04/2022 09/04/2012 (2 - Td) PNEUMOCOCCAL 0-64 YEARS Aged Out No longer elig ible based COMBINED SERIES on patient's age to complete this topic documented as of this encounter Results Not on filedocumented in this encounter Visit Diagnoses Diagnosis Essential hypertension Unspecified essential hypertension documented in this encounter Insurance Type Payer Benefit Subscriber ID Effective Phone Address Plan / Dates Group HMO/PPO/POS CIGYASSINE CIGYASSINE II [id number] 2014-P resent documented as of this encounter Advance Directives Patient Veterinary Surgery Technician Explanation Type Date Recorded Advance Directives 05/20/2015 9:05 AM and Living Will Power of Manager Net 05/20/2015 9:05 AM
--- OUTSIDE RECORDS SUMMARY | 2019-10-19 00:22 | XMS REPORT | Summary of Care ---
Author Author [facility] - Health Organization [facility] - Health Address Unknown Phone Unavailable Care Team Providers Care Gun Examiner Name Role Phone Edna Bethea MD PCP Reason for Visit * Reason Comments Authorization Encounter Details Care Team Description Date Type Department Edna Bethea MD [address] [facility] [id number] [place], [place] [id number] Authorization 10/17/2018 Telephone [place] [phone] [facility] [address] [place] [address] Allergies No Known Allergiesdocumented as of this encounter (statuses as of 11/03/2018) Medications End Date Status Medication Sig Dispensed [...] mg Take 1 tablet 90 tablet 3 10/16/ 01 tabletIndications: by mouth 9 Essential hypertension daily. Active pravastatin 40 mg Take 1 tablet 90 tablet 3 tabletIndications: Other by mouth at 9 hyperlipidemia bedtime. Active omeprazole 20 mg Take 1 30 capsule 2 capsuleIndications: capsule by 9 Esophageal dysphagia mouth daily. documented as of this encounter (statuses as of 11/03/2018) Active Problems Problem Noted Date Elevated LFTs 10/19/2018 Vitamin D deficiency 11/27/2017 Esophageal dysphagia 11/27/2017 Essential hypertension 09/14/2016 Other hyperlipidemia 12/20/2015 Erectile dysfunction 06/18/2014 Hypogonadism, male 06/06/2009 documented as of this encounter (statuses as of 11/03/2018) Resolved Problems Problem Noted Date Resolved Date Tonsillar enlargement 12/20/2015 09/14/2016 HLD (hyperlipidemia) 03/20/2013 12/20/2015 Overview: ICD10 Diagnosis Term Sustainable Development Policy Analyst Utility documented as of this encounter (statuses as of 11/03/2018) Immunizations Name Administration Dates Next Due Tdap [...] Type Specialty Edna Bethea MD [address] [facility] [id number] [place], [place] [address] 12/18/2018 Office Visit Family Medicine Health Maintenance [...] / Dates Group HMO/PPO/POS CIGNA CIGNA II [id number] 2014-P resent documented as of this encounter Advance Directives Patient Director Of Sales Marketing Explanation Type Date Recorded Advance Directives 05/20/2015 9:05 AM and Living Will Power of Sample Supervisor 05/20/2015 9:05 AM
--- OUTSIDE RECORDS SUMMARY | 2019-10-19 00:22 | XMS REPORT | Summary of Care ---
Author Author [facility] - Health Organization [facility] - Health Address Unknown Phone Unavailable Care Team Providers Care Turner Splitter Machine Operator Name Role Phone Edna Bethea MD PCP Encounter Details Care Team Description Date Type Department Edna Bethea MD [address] [facility] [id number] [place] [address] 10/19/2018 Patient Secure [facility] [address] [facility] [address] [place] [address] Allergies No Known Allergiesdocumented as of this encounter (statuses as of 11/22/2018) Medications End Date Status Medication Sig Dispensed Refills Start Date Active tadalafil (CIALIS) 5 mg TAKE / 6 tablet 2 tabletIndications: TABLET BY 8 [...] as of this encounter (statuses as of 11/22/2018) Active Problems Problem Noted Date Elevated LFTs 10/19/2018 Vitamin D deficiency 11/27/2017 Esophageal dysphagia 11/27/2017 Essential hypertension 09/14/2016 Other hyperlipidemia 12/20/2015 Erectile dysfunction 06/18/2014 Hypogonadism, male 06/06/2009 documented as of this encounter (statuses as of 11/22/2018) Resolved Problems Problem Noted Date Resolved Date Tonsillar enlargement 12/20/2015 09/14/2016 HLD (hyperlipidemia) 03/20/2013 12/20/2015 Overview: ICD10 Diagnosis Term Botany Laboratory Assistant Utility documented as of this encounter (statuses as of 11/22/2018) Immunizations Name Administration Dates Next Due Tdap [...] Type Specialty Edna Bethea MD [address] [facility] [id number] [place] [address] [phone] 12/18/2018 Office Visit Family Medicine Health Maintenance [...] / Dates Group HMO/PPO/POS CIGNA CIGNA II [id number] 2014-P resent documented as of this encounter Advance Directives Patient Hearing Screen Coordinator Explanation Type Date Recorded Advance Directives 05/20/2015 9:05 AM and Living Will Power of Guillotine Trimmer 05/20/2015 9:05 AM
--- OUTSIDE RECORDS SUMMARY | 2019-10-19 00:22 | XMS REPORT | Summary of Care ---
Author Author [facility] - Health Organization [facility] - Health Address Unknown Phone Unavailable Care Team Providers Care Credit Checker Name Role Phone Edna Bethea MD PCP Reason for Visit * Reason Comments Medication Problem PA for testosterone 1.25 g/ Actuation (1 %) gel pump Encounter Details Care Team Description Date Type Department Edna Bethea MD [address] [facility] [id number] [place] [address] Medication Problem (PA for testosterone 1.25 g/Actuation (1 %) gel pump ) 09/17/2019 Telephone [facility]- [address] [place] [address] Allergies No Known Allergiesdocumented as [...] (hyperlipidemia) 03/20/2013 12/20/2015 Overview: ICD10 Diagnosis Term Chief Procurement Officer Utility documented as of this encounter (statuses [...] / Dates Group HMO/PPO/POS CIGYASSINE ALMONTE II [id number] 2014-P resent documented as of this encounter Advance Directives Patient Material Controller Explanation Type Date Recorded Advance Directives 05/20/2015 9:05 AM and Living Will Power of Film Or Tape Librarian 05/20/2015 9:05 AM
--- OUTSIDE RECORDS SUMMARY | 2019-10-19 00:22 | XMS REPORT | Summary of Care ---
Author Author [facility] - Health Organization [facility] - Health Address Unknown Phone Unavailable Care Team Providers Care Tech Writer Name Role Phone Edna Bethea MD PCP Encounter Details Care Team Description Date Type Department Henry Mehta MD [id number] [place] [address] 04/16/2019 Patient Secure [facility] [address] [facility] [address] [place] [address] Allergies No Known Allergiesdocumented as of this encounter (statuses as of 05/23/2019) Medications End Date Status Medication Sig Dispensed [...] as of this encounter (statuses as of 05/23/2019) Active Problems Problem Noted Date Elevated LFTs 10/19/2018 Vitamin D deficiency 11/27/2017 Esophageal dysphagia 11/27/2017 Essential hypertension 09/14/2016 Other hyperlipidemia 12/20/2015 Erectile dysfunction 06/18/2014 Hypogonadism, male 06/06/2009 documented as of this encounter (statuses as of 05/23/2019) Resolved Problems Problem Noted Date Resolved Date Tonsillar enlargement 12/20/2015 09/14/2016 HLD (hyperlipidemia) 03/20/2013 12/20/2015 Overview: ICD10 Diagnosis 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
--- OUTSIDE RECORDS SUMMARY | 2019-10-19 00:22 | XMS REPORT | Summary of Care ---
Author Author [facility] - Health Organization [facility] - Health Address Unknown Phone Unavailable Care Team Providers Care Manager Marketing Communication Name Role Phone Edna Bethea MD PCP Reason for Visit * Reason Comments Hypertension Encounter Details Care Team Description Date Type Department Edna Bethea MD [address] [facility] [id number] [place] [address] Adjustment disorder with anxious mood (P rimary Dx); Hypogonadism, male; Essential hypertension 09/15/2019 Telemedicine [facility] Family Visit Medicine- [address] [place] [address] Allergies No Known Allergiesdocumented as of this encounter (statuses as of 09/17/2019) Medications End Date Status Medication Sig Dispensed [...] 2 0 Essential hypertension (two) times daily. 09/15/2019 Discontinued (Reorder) testosterone 1.25 APPLY 4 1 Bottle 2 10/17/19 1 g/Actuation (1 %) gel SPRAYS 9 pumpIndications: EXTERNALLY TO Hypogonadism, male SPECIFIC AREA OF SKIN DAILY 09/15/2019 Discontinued (Reorder) lisinopril 10 mg Take 1 tablet 90 tablet 3 02 tabletIndications: by mouth 0 Essential hypertension daily. 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 Pt consents to telephone visit. Pt is located at home. This physician is located at [facility]. HPI: Jourdan Elias is a 44 year old male with concerns as below. Blood pressure has been up and having stress. Still taking pravastatin and lisinopril. Bp in mornings higher than in afternoon . 140-150/100-110 in am and in afternoon 123/80. Source of stress - work, friend age 38 , girlfriends father had a stroke. Not exercising. Has been drinking more. Recently cut back. Will begin counseling on phone through insurance. Going into work - [employer]. Meetings on line but in of fice. Ok to go to work. Had to miss work due to emotions yesterday. No Si. Healt hy appetite. Not tried anything other than alcohol to sleep. Fearful of groggine ss in am. Not on testosterone for about 1 year. Interested in restarting as felt more humaira rgy and vivacious before. Medications reviewed HISTORY Patient Active Problem List Diagnosis Hypogonadism, male Erectile dysfunction Other hyperlipidemia Essential hypertension Vitamin D deficiency Esophageal dysphagia Elevated LFTs REVIEW OF SYSTEMS Constitutional: denies fatigue, denies fever ,+ weight gain up to 225 at one poi nt and now 210. HENT: Ears: denies discharge and denies ear pain. Nose/Sinuses: denies congestion, denies rhinorrhea, denies postnasal drip, an d denies sneezing. Mouth/Throat: denies hoarseness and denies sore throat. Neck: denies pain, denies swollen glands Cardiovascular: denies chest pain and denies palpitations. Respiratory: occasional cough and denies shortness of breath. Gastrointestinal: denies abdominal pain, denies constipation, denies diarrhea, d enies nausea and denies vomiting. Musculoskeletal: denies joint pain, denies muscle cramps and denies weakness. Lymph: denies swelling. Neuro: - headache OBJECTIVE Constitutional: Alert and in no distress Resp: Breathing comfortably Neuro: answers questions appropriately Psych:affect normal ASSESSMENT Adjustment disorder with anxious mood (primary encounter diagnosis) Comment: due to recent deaths and illness infamily and stress from COVID precaut ions. Plan: advised on progressive muscle relaxation and anxiety and phobia workbook. Hypogonadism, male Comment: has not been treated in approximately 2 years. Two low results 10-16-2018 and 04-03-2019 Rx written in october 2018 but insurance would not cover. Plan: testosterone 1.25 g/Actuation (1 %) gel pump Restart. Essential hypertension Comment: suboptimal control, may improve with testosterone therapy by helping wi th stress reduction Plan: CBC WITH DIFF, COMP. METABOLIC PANEL (87873), LIPID PANEL (18853)(TOTAL CHOLESTEROL, TRIGLYCERIDES, HDL), lisinopril 10 mg tablet Telephone Encounter time: 27 minutes No Video capability today. Due to [employer] tower outage in [place]. Patient voices understanding and agreement with plan. Next visit 3-4 weeks . After visit summary (AVS ) documentation will be available through [place] for t his encounter. documented in this encounter Plan of Treatment Order Schedule Name Type Priority Associated Diag noses Expected: 09/15/2019, Expires: 0 CBC WITH DIFF LAB Routine Essential hyper tension Expected: 09/15/2019, Expires: 0 COMP. METABOLIC PANEL LAB Routine [facility] l hypertension (94310) Expected: 09/15/2019, Expires: 0 LIPID PANEL (94365)(TOTAL LAB Routine Esse ntial hypertension CHOLESTEROL, TRIGLYCERIDES, HDL) Health Maintenance Due Date Last Done Comments Depression Screening 1989 INFLUENZA VACCINE (#1) 2019 DTaP,Tdap,and Td Vaccines 09/04/2022 09/04/2012 (2 - Td) PNEUMOCOCCAL 0-64 YEARS Aged Out No longer elig románle based COMBINED SERIES on patient's age to complete this topic documented as of this encounter Results Not on filedocumented in this encounter Visit Diagnoses Diagnosis Adjustment disorder with anxious mood - Primary Adjustment disorder with anxiety Hypogonadism, male Other testicular hypofunction Essential hypertension Unspecified essential hypertension documented in this encounter Insurance Type Payer Benefit Subscriber ID Effective Phone Address Plan / Dates Group HMO/PPO/POS CIGNA CIGNA II [id number] 2014-P resent documented as of this encounter Advance Directives 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
[2019-10-19] MEDS ORDERED: CLONIDINE HCL 0.1 MG TAB PO ONE ×2 (01:00)
--- NOTE | 2019-10-19 01:03 | Diagnostic Imaging Report ---
EXAMINATION: CXR 2 VIEW - HOPD INDICATION: Chest pain COMPARISON: None FINDINGS: TUBES and LINES: None. LUNGS: Normal lung volumes. Lungs are clear. No consolidations. PLEURA: No pleural effusion or pneumothorax. HEART AND MEDIASTINUM: The cardiomediastinal silhouette is unremarkable. BONES AND SOFT TISSUES: No acute osseous lesion. Soft tissues are unremarkable. UPPER ABDOMEN: No free air under the diaphragm. IMPRESSION: No acute thoracic radiographic abnormality. Signed by: Wes Mariscal DO on 10/19/2019 1:00 AM
[2019-10-19 01:11] LABS: BASOPHILS % 0.5 % (0.0-1.0); EOSINOPHILS # (AUTO) 0.1 (0.0-0.4); EOSINOPHILS % 1.8 % (0.0-6.0); HEMATOCRIT 42.3 % (38.2-49.6); HEMOGLOBIN 15.3 g/dL (14.0-18.0); LYMPHOCYTES # (AUTO) 1.4 (1.0-3.2); LYMPHOCYTES % 23.2 % (18.0-39.1); MEAN CORPUSCULAR HEMOGLOBIN 33.1 pg (28-32); MEAN CORPUSCULAR HGB CONC 36.2 g/dL (31-35); MEAN CORPUSCULAR VOLUME 91.6 fL (81-99); MONOCYTES # (AUTO) 0.5 (0.2-0.8); MONOCYTES % 8.9 % (4.4-11.3); NEUTROPHILS % 65.4 % (38.7-80.0); PLATELET COUNT 213 x10e3/uL (140-360); RED BLOOD COUNT 4.62 x10e6/uL (4.3-5.7); RED CELL DISTRIBUTION WIDTH 12.2 % (11.7-14.4)
[2019-10-19 01:51] VITALS: BP 143/83
[2019-10-19] MEDS ORDERED: ACETAMINOPHEN 325 MG TAB PO ONE (02:00)
--- NOTE | 2019-10-19 04:29 | Emergency Department Note ---
History of Present Illnes History of Present Illness Chief Complaint: Hypertension History of Present Illness This is a 44 year old male presents with elevated BP. was on 5mg lisin opril for years and then BP increased, so PCP put patient on 10mg lisinopril BID about one month ago. increased lisinopril has been managing his BP until tonight when reading of SBP was around 200. States ate a pizza and that his BP is always elevated after eating salty foods which he normally avoids. States he currently feels hot and flushed which is his normal symptoms with elevated BP and denies any other symptoms. Historian: Patient Arrival Mode: Car Onset (how long ago): hour(s) Severity: unable to specify Duration (how long): hour(s) Progression: worsening Context: Reports new medications (increase in lisinopril dose as above); Denies recent illness, Denies recent immobilization, Denies recent travel, Denies trauma/injury Relieving factors: none Exacerbating factors: none Associated symptoms: Reports chest pain (on ROS states has 0.5/10 chest discomfort this evening. Has GERD and states this does not feel like GERD pain. PMH: > cholesterol, HTN & family hx.); Denies confusion, Denies cough, Denies diaphoresis, Denies fever/chills, Denies headaches, Denies loss of appetite, Denies malaise, Denies nausea/vomiting, Denies rash, Denies seizure, Denies shortness of breath, Denies syncope, Denies weakness Past Medical/Family History Physician Review I have reviewed the patient's past medical and family history. Any updates have been documented here. Past Medical History Recent Fever: No Clinical Suspicion of Infectio: No New/Unexplained Change in Ment: No Past Medical History: Hypertension, GERD, Hyperlipedemia Other Surgery: TONSILS SINUS SURGERY Social History Smoking Cessation: Never Smoker Counseling Performed: No Alcohol Use: Occasional Any Illegal Drug Use: No Physically hurt or threatened: No Other Any Pre-Existing Lines (PICC,: No Review of Systems Review of Systems Constitutional: Reports no symptoms EENTM: Reports no symptoms Cardiovascular: Reports chest pain (No CP on HPI, only on ROS. Told RN has no pain. CP 0.5/10 left sided, no radiation. States replacing expansion joints in between driveway concrete slabs, but no other strenous activity.); Denies edema, Denies palpitations, Denies syncope Respiratory: Reports no symptoms Gastrointestinal: Reports no symptoms Genitourinary: Reports no symptoms Musculoskeletal: Reports no symptoms Integumentary: Reports no symptoms Review of other systems: All other systems negative Physical Exam Related Data Allergies: Coded Allergies: No Known Allergies (Unverified , 10/19/19) Triage Vital Signs Vital Signs Date Time Temp Pulse Resp B/P (MAP) Pulse Ox O2 Delivery O2 Flow Rate FiO2 10/18/19 23:22 98.1 98 16 212/120 98 Room Air Physical Exam CONSTITUTIONAL Constitutional: Present well-developed, Present well-nourished HENT HENT: Present normocephalic, Present atraumatic, Present oropharynx clear/moist, Present nose normal HENT L/R: Present left ext ear normal, Present right ext ear normal EYES Eyes: Reports PERRL, Reports conjunctivae normal NECK Neck: Present ROM normal PULMONARY Pulmonary: Present effort normal, Present breath sounds normal CARDIOVASCULAR Cardiovascular: Present regular rhythm, Present heart sounds normal, Present capillary refill normal, Present normal rate, Present other (CP not reproducable. Chest not tender to palpation. No pain with active ROM against resistance of shoulders.) GASTROINTESTINAL Abdominal: Present soft, Present nontender, Present bowel sounds normal GENITOURINARY SKIN Skin: Present warm, Present dry MUSCULOSKELETAL Musculoskeletal: Present ROM normal NEUROLOGICAL Neurological: Present alert, Present oriented x 3, Present no gross motor or sensory deficits PSYCHOLOGICAL Psychological: Present mood/affect normal, Present judgement normal Results Laboratory Laboratory comments WBC 6.04, HGB 15.3, HCT 42.3, PLT 213, NA 140, K 3.6, CO2 29, Cl 106, BUN 10, Cr 1.2, ALT 121, AST 83, Tbili 0.6, ALP 86. Troponin WNL. Repeat troponin negative. Imaging Imaging Comments EXAMINATION: CXR 2 VIEW - HOPD INDICATION: Chest pain COMPARISON: None FINDINGS: TUBES and LINES: None. LUNGS: Normal lung volumes. Lungs are clear. No consolidations. PLEURA: No pleural effusion or pneumothorax. HEART AND MEDIASTINUM: The cardiomediastinal silhouette is unremarkable. BONES AND SOFT TISSUES: No acute osseous lesion. Soft tissues are unremarkable. UPPER ABDOMEN: No free air under the diaphragm. IMPRESSION: No acute thoracic radiographic abnormality. Signed by: Mirian Mariscal DO on 10/19/2019 1:00 AM Dictated By: MIRIAN MARISCAL DO Transcribed By: JUNIOR on 10/19/1999 Procedures 12 Lead ECG Interpretation ECG Interpretation : ECG: ECG 1 Manager Finance: Interpreted by ED physician Prior ECG tracings: reviewed Rhythm: sinus rhythm Rate: normal (9) BPM: 93 QRS axis: normal ST segments normal: Yes T waves normal: Yes Clinical Impression: normal ECG Clinical Decision Tools HEART Score Date Taken: Oct 19, 2019 HEART Score: HEART Score Response (Comments) Value History Slightly suspicious 0 EKG Normal 0 Age < 45 0 Risk factors 3 or more risk factors OR hx of CAD 2 Troponin < or = to normal limit Total 2 Assessment & Plan Medical Decision Making MDM Pt with CP and > BP. DCP dfferential includes but is not limited to: dissection, FL, ACS, muscle strain/sprain, pneumothorax, pneumonia, pleurisy. No signs of dissection, pneumthorax, pneumonia on CXR. EKG and 2 sets of cardiac enzymes neg ative. Patient declined admit. BP improved. Will f/u with cardiology for BP management and stress test. Reassessment Reassessment 0050 No CP, BP 117/114 will give 2nd 0.1 of clonidine. 04:15 - 143/83, CP free repeat trop neg. declines admit will D/C with cards f/u Assessment & Plan Final Impression: (1) Hypertension (2) Chest pain Last Vital Signs Date Time Temp Pulse Resp B/P (MAP) Pulse Ox O2 Delivery O2 Flow Rate FiO2 10/18/19 23:22 98.1 98 16 212/120 98 Room Air Medications in the ED Aspirin 324 mg ONCE ONCE PO ; Start 10/19/19 at 00:00; Stop 10/19/19 at 00:01; Status UNV Clonidine HCl 0.1 mg ONCE ONCE PO ; Start 10/19/19 at 00:00; Stop 10/19/19 at 00:01; Status UNV LIAN BOATENG MD Oct 19, 2019 00:09
== END 2019-10-19 04:27 | disposition home or self-care (01) ==
LOC: FSED 23:11
DX: I10 Essential (primary) hypertension (principal); R07.89 Other chest pain; K21.9 Gastro-esophageal reflux disease without esophagitis; E78.5 Hyperlipidemia, unspecified
CPT/HCPCS: 36415; 71046; 80053; 84484; 85025; 93005; 99284